=== PATIENT | male | born 1990 | race African-American/Black ===

== ENCOUNTER 2018-11-17 12:02 | Emergency (ER) | payer SELFPAY ==
[~2018-11-17] VITALS: Wt 90.0 kg
[2018-11-17 12:06] VITALS: BP 140/78; PULSE 89; RESP 18
[2018-11-17] MEDS ORDERED: LIDOCAINE 1% (MPF) 5 ML VIAL INFIL ONE (13:30)
[2018-11-17] MEDS: MUPIROCIN 2% 22 GM OINT TOP ONE ×2 (13:49→13:50)
--- NOTE | 2018-11-17 21:51 | ERD ---
ER Documentation Chief Complaint Chief Complaint SCALP LAC,KAMARI, NO KO HPI 28-year-old male presents for scalp laceration status post hitting a door at work today. The laceration is on the posterior right side. Denies loss of consciousness or vomiting afterwards. No other complaints. ROS All systems reviewed and are negative except as per history of present illness. Allergies Allergies: Coded Allergies: No Known Allergy (Unverified , 11/17/18) PMhx/Soc Medical and Surgical Hx: pt denies Medical Hx, pt denies Surgical Hx Hx Alcohol Use: No Hx Substance Use: No Hx Tobacco Use: No Smoking Status: Never smoker Physical Exam Vitals Vital Signs Date Temp Pulse Resp B/P (MAP) Pulse Ox O2 O2 Flow FiO2 Time Delivery Rate 11/17/18 98.0 89 18 140/78 99 12:06 (98) Physical Exam Const: No acute distress Head: Right posterior scalp laceration about 2 cm Eyes: Normal Conjunctiva ENT: Normal External Ears, Nose and Mouth. Neck: Full range of motion. No meningismus. No midline tenderness Resp: Clear to auscultation bilaterally Cardio: Regular rate and rhythm, no murmurs Skin: No petechiae or rashes Ext: No cyanosis, or edema Neur: Awake and alert Psych: Normal Mood and Affect Results 24 hrs Current Medications Medications Dose Sig/Maria Luz Start Time Status Last (Trade) Ordered Route PRN Stop Time Admin Dose Reason Admin Lidocaine 5 ml ONCE ONCE 11/17/18 DC (Xylocaine INFIL 13:30 1% (Mpf)) 11/17/18 13:31 Mupirocin 1 applic ONCE ONCE 11/17/18 DC (Bactroban) TOP 13:30 11/17/18 13:31 Procedures/MDM Laceration Repair by me: Anesthesia: 1% lidocaine without epinephrine locally Location: Posterior scalp right side Tendon/Joint/Nerves: No injury Foreign body: None detected after copious irrigation and exploration Technique: Simple Interrupted Sutures Complexity: No subcutaneous sutures/mucosal repair/edge excision Post Closure Length: 2 cm Patient's bleeding was easily controlled in the department and there is no indication of anemia. No evidence of compartment syndrome, neurologic injury, vascular injury, open joint, tendon laceration, or foreign body. Patient is appropriate for outpatient follow up. 48 hour wound check. Scar minimization instructions given. Medical Decision Making: Patient appeared well on physical exam. Examination showed a laceration of the posterior right side about 2 cm. The wound is irrigated Laceration repaired, see procedure note above Patient advised to return in 48 hours for wound check. Advised to return in 7-10 days for suture removal. Patient advised to follow up with PCP in 1-2 days. Patient advised to return to ED for new or worsening symptoms. Patient stable on discharge from the ED. Disclaimer: Inadvertent spelling and grammatical errors are likely due to EHR/dictation software use and do not reflect on the overall quality of patient care. Also, please note that the electronic time recorded on this note does not necessarily reflect the actual time of the patient encounter. Departure Diagnosis: Primary Impression: Laceration Condition: Fair Patient Instructions: Laceration, Scalp Referrals: [facility] YOU HAVE RECEIVED A MEDICAL SCREENING EXAM AND THE RESULTS INDICATE THAT YOU DO NOT HAVE A CONDITION THAT REQUIRES URGENT TREATMENT IN THE EMERGENCY DEPARTMENT. FURTHER EVALUATION AND TREATMENT OF YOUR CONDITION CAN WAIT UNTIL YOU ARE SEEN IN YOUR DOCTORS OFFICE WITHIN THE NEXT 1-2 DAYS. IT IS YOUR RESPONSIBILITY TO MAKE AN APPOINTMENT FOR FOLOW-UP CARE. IF YOU HAVE A PRIMARY DOCTOR --you should call your primary doctor and schedule an appointment IF YOU DO NOT HAVE A PRIMARY DOCTOR YOU CAN CALL OUR PHYSICIAN REFERRAL HOTLINE AT IF YOU CAN NOT AFFORD TO SEE A PHYSICIAN YOU CAN CHOSE FROM THE FOLLOWING [facility] [address] [facility] [facility] [address] [facility] [facility] [place] [address] [facility] [facility] [address] [facility]. [facility] [address] [facility]. [facility]. [address] Additional Instructions: Call your primary care doctor TOMORROW for an appointment during the next 1-2 days.See the doctor sooner or return here if your condition worsens before your appointment time. Return to ED for wound check in 2 days -Return to ED or PCP for suture removal in 7-10 days MACK CRUZ DO Nov 17, 2018 21:51
== END 2018-11-17 14:17 | disposition home or self-care (01) ==
LOC: FTE 12:02
DX: S01.01XA Laceration without foreign body of scalp, initial encounter (principal); W22.8XXA Striking against or struck by other objects, initial encounter; Y92.9 Unspecified place or not applicable
CPT/HCPCS: 99282